=== PATIENT | female | born 1980 | race Caucasian/White ===

== ENCOUNTER 2018-07-30 11:37 | Emergency (ER) | payer SELFPAY ==
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
[2018-07-30 12:01] VITALS: BMI 28.2
[2018-07-30 12:03] VITALS: BP 101/81; PULSE 73; RESP 18; TEMP 97.6; O2SAT 98
[2018-07-30] MEDS ORDERED: Silver Sulfadiazine 1% Cream (25 gm) TP STA ×2 (12:03→12:12)
== END 2018-07-30 12:26 | disposition home or self-care (01) ==
LOC: ED 11:37
DX: T22.211A Burn of second degree of right forearm, initial encounter (principal); X10.2XXA Contact with fats and cooking oils, initial encounter; Y93.G3 Activity, cooking and baking; Y92.000 Kitchen of unspecified non-institutional (private) residence as the place of occurrence of the external cause